=== PATIENT | female | born 2000 | race Two or more races ===

== ENCOUNTER 2023-10-08 08:20 | Emergency (ER) | payer OTHER ==
[~2023-10-08] VITALS: Ht 157.5 cm; Wt 56.7 kg
[2023-10-08] MEDS ORDERED: BARIUM SULFATE 450 ML ORAL.SUSP PO ONE (09:21)
[2023-10-08 09:54] LABS: HEMATOCRIT 34.8 % (36.0-45.00); HEMOGLOBIN 11.9 g/dL (12.0-15.00); MEAN CELL VOLUME 91.4 fL (80.00-100.00); MEAN CORPUSCULAR HEMOGLOBIN 31.2 pg (27.00-32.0); MEAN CORPUSCULAR HGB CONC 34.1 g/dl (32.0-36.0); PLATELET COUNT 189 K/uL (150-450); RED BLOOD COUNT 3.81 M/uL (4.00-6.00); RED CELL DISTRIBUTION WIDTH 12.6 % (11.5-14.5)
[2023-10-08 10:50] LABS: URINE APPEARANCE Cloudy; URINE BILIRRUBIN Negative (NEGATIVE); URINE BLOOD Large; URINE COLOR Yellow; URINE GLUCOSE Negative (NEGATIVE); URINE LEUKOCYTE Small; URINE NITRATE Positive; URINE PROTEIN Negative (NEGATIVE); URINE UROBILINOGEN 0.2 E.U./dl
[2023-10-08 10:55] LABS: URINE EPITHELIAL CELLS 9.1 uL (0.0-38.8); URINE RBC 3.2 uL (0.0-20.8); URINE WBC 768.8 uL (0.0-23.2)
[2023-10-08 11:44] LABS: URINE BACTERIA > 9821.5 uL (0.0-1933)
[2023-10-08] MEDS ORDERED: CEFTRIAXONE SODIUM 1,000 MG VIAL IV ONE (13:15)
[2023-10-08] MEDS ORDERED: KETOROLAC TROMETHAMINE 30 MG VIAL IV ONE (13:15)
[2023-10-08] MEDS ORDERED: KETOROLAC TROMETHAMINE 30 MG VIAL ONE (13:46)
[2023-10-08] MEDS ORDERED: CEFTRIAXONE SODIUM 1,000 MG VIAL ONE (13:46)
== END 2023-10-08 15:42 | disposition home or self-care (01) ==
LOC: ER 08:21
PROVIDERS: Emergency Medicine
DX: R10.9 Unspecified abdominal pain (principal); N39.0 Urinary tract infection, site not specified